=== PATIENT | female | born 1965 | race Caucasian/White ===

== ENCOUNTER → 2021-03-03 14:43 | Outpatient (CLI) | payer OTHER, SELFPAY ==
--- NOTE | ~2021-03-03 | US_ITS ---
US soft tissue LE RT DATE: 03/03/2021 14:59 INDICATION: Localized swelling/lump, right upper leg TECHNIQUE: Real-time imaging and color flow imaging COMPARISON: None FINDINGS: There is a lobular heterogeneous solid mass measuring 7.3 x 4.7 x 7.2 cm dimension, with in ternal vascularity. Differential diagnosis includes enlarged abnormal lymph node versus primary or se condary malignant mass. Biopsy is recommended. IMPRESSION: Vascular 7.3 x 4.7 x 7 2 cm heterogeneous solid lobular mass in proximal right thigh; bio psy is recommended Reviewed, dictated and finalized at [facility]. Reviewed, dictated and finalized at [facility]. IMPRESSION: Vascular 7.3 x 4.7 x 7 2 cm heterogeneous solid lobular mass in pro ximal right thigh; biopsy is recommended
== END ==
PROVIDERS: PCP Family Medicine; Visit Provider Physician Assistant Medical
DX: R22.41 Localized swelling, mass and lump, right lower limb (principal)
CPT/HCPCS: 76882

== ENCOUNTER 2021-03-22 09:01 | Outpatient (CLI) | payer OTHER, SELFPAY ==
--- NOTE | ~2021-03-22 | US_ITS ---
EXAMINATION: US biopsy st muscle DATE: 03/22/2021 09:45 INDICATION: Vascular mass at the anteromedial proximal right thigh TECHNIQUE: The procedure including the risks and benefits was discussed with the patient. Risks discu ssed included bleeding and infection. The patient understood the risks and agreed to proceed. The sk in overlying the mass at the anteromedial proximal right thigh was prepped and draped in usual steril e fashion. Anesthetic was administered with 1% lidocaine subcutaneously. An 18 gauge core biopsy ne edle was advanced under continuous ultrasound observation to the lesion of interest. The core biopsy specimens were obtained. The needle was removed and the entry site was cleaned and dressed. Post p rocedure ultrasound demonstrated no hemorrhage. FINDINGS: Ultrasound images demonstrate an approximately 8 x 5 x 6.6 cm hypoechoic mass with lobular margins at the region of concern. The mass is centered in the subcutaneous fat. The mass abuts and ap pears to exert some mass effect upon the superficial fascia of the underlying muscle. Subsequent imag es demonstrate the biopsy needles advanced into the mass with skin entry site directly over the mass, slightly inferomedial to its epicenter. IMPRESSION: 1. Successful Ultrasound-guided biopsy of an 8 cm hypoechoic subcutaneous mass at the anteromedial pr oximal right thigh. Reviewed, dictated and finalized at [facility]. IMPRESSION: 1. Successful Ultrasound-guided biopsy of an 8 cm hypoechoic subcutaneous mass at the anteromedial proximal right thigh.
== END 2021-03-22 09:02 | disposition home or self-care (01) ==
LOC: ANHIMG 09:05
PROVIDERS: PCP Family Medicine; Visit Provider Physician Assistant Medical
DX: R22.41 Localized swelling, mass and lump, right lower limb (principal)
CPT/HCPCS: 20206; 76942; 88305; 88342

== ENCOUNTER → 2021-03-28 15:44 | Outpatient (CLI) | payer OTHER, SELFPAY ==
--- NOTE | ~2021-03-28 | MM_ITS ---
EXAMINATION: MM screening andreea BI w sanya HISTORY: Screening mammogram TECHNIQUE: Craniocaudal and mediolateral oblique 3-D tomosynthesis images were obtained and synthetic 2-D images were generated. CAD analysis was submitted and interpreted. COMPARISON: 08/06/2018, 11/12/2014 bilateral screening mammograms BREAST PARENCHYMAL COMPOSITION: The breasts are almost entirely fatty. FINDINGS: There is no evidence of suspicious mass, calcification, or architectural distortion to sugg est malignancy in either breast. There has been no suspicious interval change. IMPRESSION: 1. No mammographic evidence of malignancy. 2. Recommend routine screening mammography in one year. BI-RADS Category 1: Negative. Reviewed, dictated and finalized at [facility]. [employer] TECH[employer]ICIAN
== END ==
PROVIDERS: PCP Family Medicine; Visit Provider Physician Assistant Medical
DX: Z12.31 Encounter for screening mammogram for malignant neoplasm of breast (principal)
CPT/HCPCS: 77063; 77067